=== PATIENT | male | born 1995 | race Caucasian/White ===

== ENCOUNTER 2017-02-22 15:18 | Emergency (ER) | payer BC ==
[~2017-02-22] VITALS: Ht 193 cm; Wt 75.0 kg
[~2017-02-22 15:18] MED LIST: BECL80AE; IBUP600 PO; TAB-TAB PO; ZYRT10TA12 PO
[2017-02-22 15:30] VITALS: BP 149/90; PULSE 75; RESP 16; TEMP 98.9; O2SAT 97
--- NOTE | 2017-02-22 18:18 | PD ---
HPI Chief Complaint: chain saw laceration left elbow Time Seen by Provider: 18:11 Travel History International Travel<30 days: No Contact w/Intl Traveler<30days: No Traveled to known affect area: No History of Present Illness HPI 21-year-old male presents emergency Department with a dental chain saw injury to the left lateral elbow. Patient was cutting trees with his cousin , with his cousin using a chainsaw, the kicked back and accidentally hit the patient in the posterior lateral elbow. Patient denies numbness, tingling, or loss of function. Pressure dressing was applied in the field. He is unsure of his last tetanus shot. Pain is currently about an 8 out of 10. Bleeding is currently controlled He has no known drug allergies. [facility] Past Medical History Autoimmune Disease: No Cardiovascular Problems: No Diminished Hearing: No Inguinal Hernia: Yes (2002) Musculoskeletal: No Neurologic: No Psychiatric: No Reproductive: No Respiratory: Yes (3 PNEUMOTHORAX) Immunizations Current: Yes Past Surgical History Cardiac Surgery: No Ear Surgery: No Endocrine Surgery: No Eye Surgery: No Genitourinary Surgery: No Gynecologic Surgery: No Neurologic Surgery: No Oral Surgery: No Thoracic Surgery: No Other Surgery: Yes (HERNIA ) Social History Alcohol Use: No Tobacco Use: No Substance Use: No Allergies-Medications (Allergen,Severity, Reaction): Coded Allergies: No Known Allergies (Verified , 02/22/17) Reported Meds & Prescriptions Reported Meds & Active Scripts Active No Active Prescriptions or Reported Medications Review of Systems Except as stated in HPI: all other systems reviewed are Neg General / Constitutional: No: Fever Eyes: No: Visual changes HENT: No: Headaches Cardiovascular: No: Chest Pain or Discomfort Respiratory: No: Shortness of Breath Gastrointestinal: No: Abdominal Pain Genitourinary: No: Dysuria Musculoskeletal: No: Pain Skin: Positive Lesions, No Rash Neurologic: No: Weakness Psychiatric: No: Depression Endocrine: No: Polydipsia Hematologic/Lymphatic: No: Easy Bruising Physical Exam Narrative GENERAL: Patient appears in mild to moderate distress SKIN: Warm and dry. Normal color. Normal turgor. Patient has a jagged open wound to the posterior distal left upper arm above the elbow which appears to only go through the skin into the fatty tissue layer. There is no obvious involvement of the muscle tissue or tendon. HEAD: Atraumatic. Normocephalic. EYES: Pupils equal and round. No scleral icterus. No injection or drainage. ENT: No nasal bleeding or discharge. Mucous membranes pink and moist. Pharynx is clear. Airway is patent. NECK: Trachea midline. Supple and nontender. CARDIOVASCULAR: Regular rate and rhythm. RESPIRATORY: No accessory muscle use. Clear to auscultation. Breath sounds equal bilaterally. MUSCULOSKELETAL: Extremities without clubbing, cyanosis, or edema. No obvious deformities. Patient is able to fully extend or flex the elbow without weakness or significant increase in pain. Patient has normal corporate manager strength, and neurovascular exam is normal distally. NEUROLOGICAL: Awake and alert. No obvious cranial nerve deficits. Motor grossly within normal limits. Five out of 5 muscle strength in the arms and legs. Normal speech. PSYCHIATRIC: Appropriate mood and affect; insight and judgment normal. Data Data Last Documented VS Vital Signs Date Time Temp Pulse Resp B/P (MAP) Pulse Ox O2 Delivery O2 Flow Rate FiO2 02/22/17 15:30 98.9 75 16 149/90 (109) 97 Room Air Orders Orders Tetanus/Diphtheria Tox Adult (Tetanus/Di (02/22/17 18:30) Elbow, Complete (4 Vws) (02/22/17 18:20) Lidocai-Epi 2%-1:100,000 Inj (Xylocaine- (02/22/17 19:30) Cefazolin Inj (Ancef Inj) (02/22/17 19:30) MDM Medical Decision Making Medical Screen Exam Complete: Yes Emergency Medical Condition: Yes Differential Diagnosis Chain saw laceration. Possible involvement of bone. Possible involvement of tendon or nerve. Narrative Course Patient is medically stable at time of exam. X-ray of the left elbow was obtained. Patient is given tetanus 0.5 mg IM. Patient is given 1 g Ancef IM. X-ray shows no obvious involvement of the bone or foreign body. Wound is closed. See procedure note. Patient is placed in a sling which should be worn for the next several days. Patient be continued on Keflex 500 mg 3 times a day as well as Bactrim DS twice a day for the next 7 days. Patient can take ibuprofen 800 mg 3 times daily with food #30. Patient can take Tylenol as well as needed for pain. Recommend follow-up visit in 2 days for a wound check. Sutures should remain in for at least 10 days. Procedures Procedure Narrative LACERATION LOCATION: Left posterior lateral elbow LENGTH: 10 cm NUMBER OF STITCHES/FRANDY: 2 simple interrupted, 4 vertical mattress interrupted, 7 horizontal mattress interrupted. REPAIR: The area of the laceration was prepped with Betadine and sterilely draped. The laceration was infiltrated with 6 mL 2% lidocaine with epi. The wound was copiously irrigated and explored without evidence of foreign body, tendon injury or neurovascular injury. The wound was closed using 3-0 Ethilon. This was a single layer repair. A sterile dressing was applied. The patient was advised to keep the dressing clean and dry. Patient tolerated the procedure well. Diagnosis Primary Impression: Laceration of left elbow without complication Qualified Codes: S51.012A - Laceration without foreign body of left elbow, initial encounter Referrals: Primary Care Physician Patient Instructions: Care For Your Stitches (DC), General Instructions, How to Use a Sling (GEN) Additional Instructions: X-ray shows no obvious involvement of the bone or foreign body. Wound is closed. See procedure note. Patient is placed in a sling which should be worn for the next several days. Patient be continued on Keflex 500 mg 3 times a day as well as Bactrim DS twice a day for the next 7 days. Patient can take ibuprofen 800 mg 3 times daily with food #30. Patient can take Tylenol as well as needed for pain. Recommend follow-up visit in 2 days for a wound check. Sutures should remain in for at least 10 days. Med/Other Pt SpecificInfo: Prescription(s) given Scripts No Active Prescriptions or Reported Meds Disposition: 01 DISCHARGE HOME Condition: Stable Neo Overton Feb 22, 2017 18:18
[2017-02-22] MEDS ORDERED: LIDOCAINE 2%/EPINEPHrine 1:100,000 30ML MDV INFIL ONE (18:30)
[2017-02-22] MEDS ORDERED: TETANUS/DIPHTHERIA TOXOID ADULT 0.5 ML VIAL IM ONE (18:30)
--- NOTE | 2017-02-22 18:47 | RADRPT ---
EXAM DATE/TIME: 02/22/2017 18:23 [facility] COMPARISON: No previous studies available for comparison. INDICATIONS : Laceration left elbow from chainsaw MEDICAL HISTORY : None. SURGICAL HISTORY : None. ENCOUNTER: Initial ACUITY: 1 day PAIN SCORE: 7/10 LOCATION: Left elbow FINDINGS: Soft tissue swelling and laceration in the posterior left elbow region. No radiopaque foreign bodies. Osseous structures appear intact without evidence for acute bony fracture. No significant joint effu dasia. CONCLUSION: 1. No radiopaque foreign bodies or acute fracture. Yusuf Kincaid MD on February 22, 2017 at 18:45 Board Certified Radiologist. This report was verified electronically.
[2017-02-22] MEDS ORDERED: LIDOCAINE 2%/EPINEPHrine 1:100,000 50ML MDV ONE (19:30)
[2017-02-22] MEDS ORDERED: ceFAZolin INJ 1,000 MG VIAL IM ONE (19:30)
[2017-02-22] MEDS ORDERED: CEPH-460 PO (20:17)
[2017-02-22] MEDS ORDERED: IBUP800T23 PO (20:17)
[2017-02-22] MEDS ORDERED: BACT800T5 PO (20:17)
== END 2017-02-22 20:43 | disposition home or self-care (01) ==
LOC: PHED 15:18 → PHEFT 20:43
DX: S51.012A Laceration without foreign body of left elbow, initial encounter (principal); W29.3XXA Contact with powered garden and outdoor hand tools and machinery, initial encounter
CPT/HCPCS: 12004; 73080; 90471; 90714; 96372; 99284; J0690